=== PATIENT | male | born 1970 | race American Indian/Alaskan Native ===

== ENCOUNTER 2021-06-27 15:14 | Emergency (ER) | payer SELFPAY ==
[2021-06-27] MEDS ORDERED: KETOROLAC 60 MG/2 ML INJ IM ONE (15:56)
[2021-06-27] MEDS ORDERED: CYCLOBENZAPRINE 10 MG TAB PO ONE (15:56)
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
[2021-06-27 16:18] VITALS: BP 145/70
== END 2021-06-27 16:37 | disposition home or self-care (01) ==
LOC: ED 15:14
DX: S29.012A Strain of muscle and tendon of back wall of thorax, initial encounter (principal); Z79.899 Other long term (current) drug therapy; V89.2XXA Person injured in unspecified motor-vehicle accident, traffic, initial encounter; Y93.89 Activity, other specified; Y92.488 Other paved roadways as the place of occurrence of the external cause; Y99.8 Other external cause status
CPT/HCPCS: 96372; 99282; J1885